=== PATIENT | female | born 1955 | race African-American/Black ===

== ENCOUNTER 2019-03-31 05:55 | Inpatient (IN) | payer BC ==
[2019-03-24 13:51] VITALS: BMI 42.0
[~2019-03-31 05:55] MED LIST: BUPIVACAINE HCL/PF 0.25% (2.5MG/ML) 10 ML VIAL IJ ONE
[2019-03-31] MEDS ORDERED: BUPIVACAINE HCL/PF 2.5 MG/ML - 30 ML VIAL IJ ONE (07:18)
--- NOTE | 2019-03-31 07:41 | HP ---
Admitting History and Physical - Admission Chief Complaint: Morbid obesity History Source: Patient Limitations to Obtaining History: No Limitations - Past Medical History Cardiovascular: Yes: HTN ...LMP Comment: 2005 Endocrine: Yes: Diabetes Mellitus - Past Surgical History Additional Past Surgical History: Bilateral total knee replacements - Smoking History Smoking history: Never smoked - Alcohol/Substance Use Hx Alcohol Use: Yes (OCCASIONAL) Home Medications - Allergies Allergies/Adverse Reactions: Allergies Allergy/AdvReac Type Severity Reaction Status Date / Time No Known Drug Allergies Allergy Verified 03/24/19 13:14 - Home Medications Home Medications: Ambulatory Orders Amlodipine Besylate 10 mg PO DAILY 03/24/19 Aspirin [Ecotrin] 325 mg PO DAILY 03/24/19 Baclofen 10 mg PO BID 03/24/19 Insulin Glargine,Hum.rec.anlog [Lantus] 28 unit SQ DAILY 03/24/19 Metformin HCl [Glucophage] 1,000 mg PO BID 03/24/19 Metoprolol Tartrate [Lopressor] 100 mg PO DAILY 03/24/19 Sitagliptin Phosphate [Januvia] 100 mg PO DAILY 03/24/19 Valsartan/Hydrochlorothiazide [Diovan Hct 160-12.5 mg Tab] 1 each PO DAILY 03/24 Famotidine [Pepcid] 20 mg PO BID #60 tablet 03/31/19 Oxycodone HCl/Acetaminophen [Percocet 5-325 mg Tablet] 1 - 2 tab PO Q6H #28 tab MDD 4 03/31/19 Family Disease History - Family Disease History Family History: Denies Review of Systems - Review of Systems Constitutional: reports: No Symptoms HENT: reports: No Symptoms Neck: reports: No Symptoms Cardiovascular: reports: No Symptoms Respiratory: reports: No Symptoms Gastrointestinal: reports: No Symptoms Neurological: reports: No Symptoms Pain Intensity: 0 Physical Examination Vital Signs: Vital Signs Temperature 98.6 F 03/31/19 07:01 Pulse Rate 79 03/31/19 07:01 Respiratory Rate 18 03/31/19 07:01 Blood Pressure 152/82 03/31/19 07:01 O2 Sat by Pulse Oximetry (%) 100 03/31/19 07:21 Constitutional: Yes: Calm Neck: Yes: WNL Cardiovascular: Yes: Regular Rate and Rhythm Respiratory: Yes: Regular Gastrointestinal: Yes: Soft, Abdomen, Obese Neurological: Yes: Alert, Oriented Problem List - Problems (1) Morbid obesity due to excess calories Code(s): E66.01 - MORBID (SEVERE) OBESITY DUE TO EXCESS CALORIES (2) BMI 40.0-44.9, adult Code(s): Z68.41 - BODY MASS INDEX (BMI) 40.0-44.9, ADULT (3) Diabetes mellitus type 2 in obese Code(s): E11.69 - TYPE 2 DIABETES MELLITUS WITH OTHER SPECIFIED COMPLICATION; E66.9 - OBESITY, UNSPECIFIED (4) Hypertension Code(s): I10 - ESSENTIAL (PRIMARY) HYPERTENSION Qualifiers: Hypertension type: unspecified Qualified Code(s): I10 - Essential (primary ) hypertension Assessment/Plan Laparoscopic possible open vertical sleeve gastrectomy possible liver biopsy, upper endoscopy
[2019-03-31] MEDS ORDERED: PROPOFOL 20 ML ONE ×2 (07:45)
[2019-03-31] MEDS ORDERED: LIDOCAINE HCL/PF 2% SDV 5ML VIAL ONE (07:45)
[2019-03-31] MEDS ORDERED: fentaNYL CITRATE 250 MCG/5 ML VIAL ONE (07:45)
[2019-03-31] MEDS ORDERED: SUCCINYLCHOLINE CHLORIDE 200 MG/10 ML VIAL ONE (07:46)
[2019-03-31] MEDS ORDERED: MIDAZOLAM HCL 2 MG/2 ML SINGLE DOSE VIAL ONE (07:46)
[2019-03-31] MEDS ORDERED: ROCURONIUM BROMIDE 50 MG/5 ML VIAL ONE (08:07)
[2019-03-31] MEDS ORDERED: ceFAZolin SODIUM 1 GM VIAL ONE (08:13)
[2019-03-31] MEDS ORDERED: ONDANSETRON 4 MG/2 ML VIAL ONE (08:17)
[2019-03-31] MEDS ORDERED: DEXAMETHASONE SOD PHOSPHATE 4 MG/1 ML VIAL ONE (08:17)
[2019-03-31] MEDS ORDERED: ePHEDrine SULFATE 50 MG/1 ML AMPULE ONE (08:29)
[2019-03-31] MEDS ORDERED: ONDANSETRON 4 MG/2 ML VIAL IVPUSH PRN (08:48)
[2019-03-31] MEDS ORDERED: HYDROmorphone HCL CARPU-JECT 1 MG/1 ML DISP.SYRIN IVPUSH PRN (08:48)
[2019-03-31] MEDS ORDERED: PROMETHAZINE HCL 25 MG/1 ML VIAL IVPUSH PRN (08:48)
[2019-03-31] MEDS ORDERED: NEOSTIGMINE METHYLSULFATE 0.5 MG/ML - 10 ML MDV ONE (09:09)
[2019-03-31] MEDS ORDERED: GLYCOPYRROLATE 0.2 MG/1 ML VIAL ONE (09:09)
[2019-03-31] MEDS ORDERED: BUPIVACAINE HCL/PF 0.25% (2.5MG/ML) 10 ML VIAL IJ ONE (09:12)
[2019-03-31] MEDS ORDERED: HYDROmorphone HCL CARPU-JECT 1 MG/1 ML DISP.SYRIN IVPB PRN (09:21)
--- NOTE | 2019-03-31 09:28 | OP ---
Operative Note - Note: Operative Date: 03/31/19 Pre-Operative Diagnosis: Morbid obesity. BMI 42.1. Diabetes mellitus 2. Hypertension Operation: Laparoscopic hiatal hernia repair. Laparoscopic vertical sleeve gastrectomy. Laparoscopic wedge liver biopsy Post-Operative Diagnosis: Same as Pre-op (as well as hiatal hernia and hepatomegaly) Surgeon: Dann Larson [employer] Laborer: Jack Haq Anesthesia: General Specimens Removed: Greater curvature of stomach. Liver biopsy Estimated Blood Loss (mls): 30 Drains & Tubes with Location: 36 fr bougie Operative Report Dictated: Yes
[2019-03-31] MEDS ORDERED: METOCLOPRAMIDE HCL INJECTION 10 MG/2 ML VIAL IVPUSH SCH (09:30)
[2019-03-31] MEDS ORDERED: FAMOTIDINE 20 MG PREMIXED IVPB IVPB ONE (09:50)
[2019-03-31] MEDS: ACETAMINOPHEN 1000 MG/100 ML VIAL (NON FORMULARY) IVPB ONE ×2 (10:00→14:41)
[2019-03-31] MEDS ORDERED: PATIENT'S OWN MEDICATION (NON-FORMULARY) (Metoprolol Tartrate [Lopressor] 100 MG) PO SCH (10:00)
[2019-03-31] MEDS ORDERED: PATIENT'S OWN MEDICATION (NON-FORMULARY) (Valsartan/Hydrochlorothiazide [Diovan Hct 160-12 PO SCH (10:00)
[2019-03-31] MEDS ORDERED: INSULIN (NOVOLOG) ASPART 100 UNITS/ML 10ML VIAL SQ ONE (10:07)
[2019-03-31] MEDS ORDERED: METOPROLOL TARTRATE 5 MG/5 ML VIAL IVPUSH PRN (10:16)
[2019-03-31 10:50] LABS: HEMATOCRIT 31.4 % (32.4-45.2); HEMOGLOBIN 10.4 GM/dl (10.7-15.3); MCH 29.4 pg (25.7-33.7); MCHC 33.3 g/dl (32.0-36.0); MEAN CELL VOLUME 88.3 fl (80-96); MEAN PLT VOLUME 7.7 fl (7.5-11.1); PLATELET COUNT 358 K/MM3 (134-434); RBC 3.56 M/mm3 (3.60-5.2); RDW 14.7 % (11.6-15.6); WHITE BLOOD COUNT 10.9 K/mm3 (4.0-10.8)
[2019-03-31] MEDS: SODIUM CHLORIDE 1,000 ML IV SCH (11:00)
[2019-03-31 11:05] LABS: ALBUMIN 3.5 g/dl (3.4-5.0); BILIRUBIN,TOTAL 0.9 mg/dl (0.2-1); CALCIUM 9.3 mg/dl (8.5-10); POTASSIUM 3.7 mmol/L (3.5-5.1); TOT PROT 7.1 g/dl (6.4-8.2)
[2019-03-31] MEDS: ONDANSETRON 4 MG/2 ML VIAL IVPUSH SCH ×2 (13:45→21:23)
[2019-03-31] MEDS: VALSARTAN 160 MG TABLET (UD) PO SCH (14:39)
[2019-03-31] MEDS: LACTATED RINGERS SOLUTION 1,000 ML IV SCH (14:40)
[2019-03-31] MEDS: HYDROCHLOROTHIAZIDE 12.5 MG CAPSULE (FP) PO SCH (14:42)
[2019-03-31] MEDS: amLODIPine BESYLATE 10 MG TABLET (FP) PO SCH (14:42)
[2019-03-31] MEDS: FAMOTIDINE 20 MG/50 ML IVPB 20 MG/50 ML MG IVPB SCH ×2 (14:43→21:24)
[2019-03-31] MEDS: ACETAMINOPHEN 1000 MG/100 ML VIAL (NON FORMULARY) IVPB SCH ×2 (16:56→21:24)
[2019-03-31] MEDS: METOCLOPRAMIDE HCL INJECTION 10 MG/2 ML VIAL IVPUSH SCH ×2 (16:57→21:33)
[2019-03-31] MEDS ORDERED: INSULIN (NOVOLOG) ASPART 100 UNITS/ML 10ML VIAL ONE (17:02)
[2019-03-31] MEDS: INSULIN SLIDING SCALE (NOVOLOG) 1 VIAL SQ SCH (17:04)
[2019-03-31] MEDS: ENOXAPARIN NA (PORCINE) 40 MG/0.4 ML DISP.SYRIN SQ SCH (21:24)
--- NOTE | 2019-03-31 22:24 | SPEC ---
DATE OF OPERATION: 03/31/2019 PLACE OF PROCEDURE: Evan Slaughter PREOPERATIVE DIAGNOSES: 1. Morbid obesity. 2. Body mass index of 42.1. 3. Hypertension. 4. Diabetes mellitus type 2. POSTOPERATIVE DIAGNOSES: 1. Morbid obesity. 2. Body mass index of 42.1. 3. Hypertension. 4. Diabetes mellitus type 2. 5. Hepatomegaly. 6. Hiatal hernia. PROCEDURES: 1. Diagnostic laparoscopy. 2. Laparoscopic vertical sleeve gastrectomy. 3. Laparoscopic wedge liver biopsy. 4. Laparoscopic hiatal hernia repair. SPECIMEN: 1. Greater curvature of the stomach. 2. Liver biopsy. ESTIMATED BLOOD LOSS: 30 mL. DRAINS: None. ANESTHESIA: GET. BOUGIE SIZE: 36 Mal[place]. REASON FOR PROCEDURE: This is a 64-year-old female who presents for weight loss options. After describing the options, she decided to proceed with a laparoscopic, possible open, vertical sleeve gastrectomy, possible liver biopsy, and upper endoscopy. RISKS AND BENEFITS: The patient was seen by the respective subspecialties and cleared for surgery. The risks and benefits of the procedure were explained. These included bleeding, infection, hernia, AL, DVT, PE, injury to surrounding structures including the liver, colon, bowel, spleen, esophagus, vessel injury, nerve injury, weight regain, gastric leak, staple line leak, sleeve leak, obstruction, vitamin deficiency, hair loss and as some of the possible complications. The patient understood and signed informed consent. DESCRIPTION OF PROCEDURE: The patient was placed supine on the operating room table. The patient underwent general endotracheal intubation. The arms were brought out at 90 degrees and secured. A footboard was placed and the legs were secured laterally with padding. The abdomen was prepped and draped in the usual sterile fashion. A timeout was performed. An incision was made in the left upper quadrant and a Veress needle inserted. Pneumoperitoneum was established. Subsequently, the Veress needle was removed and a 5-mm trocar was placed under direct visualization with the laparoscope. The laparoscopic camera was then inserted and inspection of the abdominal cavity was performed. An incision was then made in the supraumbilical area and a 15-mm trocar was placed under direct visualization. A 5-mm trocar was then placed in the right upper quadrant and a 5-mm trocar was placed below the left subcostal margin. A stab wound was made in the subxiphoid area and a Darleen clamp inserted and removed to dilate the tract. A Selvin liver retractor was inserted. The post was secured at the bedside by the nursing staff. The patient was placed in steep reverse Trendelenburg position and the Selvin liver retractor was used to secure the liver towards the anterior abdominal wall. The pylorus was identified and 6 cm proximal to it, the lesser sac was entered using the LigaSure device. All lateral attachments to the greater curvature of the stomach, including the short gastric vessels, were ligated using the LigaSure device toward the gastrosplenic and gastrophrenic ligaments. Once this was done in its entirety, it was confirmed that all tubes within the nasal or oropharyngeal cavity, including a temperature probe were removed by Anesthesia. The bougie was then inserted by Anesthesia. Transection of the stomach was then begun staying adjacent to the bougie but away from the angularis. Transection of the stomach was performed near the portion of the stomach where the lesser sac was entered. Two laparoscopic Endo-JAYJAY black linda were used at this location. Laparoscopic Endo JAYJAY purple staple loads were then used for the remainder of the transection until the greater curvature of the stomach was fully transected. This was done staying close to the bougie. Care was taken to stay away from the angle of His cephalad. The staple line was then inspected. Hemostasis was identified. A leak test was then performed. It was clamped distally to the staple line. Irrigation solution was placed in the left upper quadrant and air was insufflated by Anesthesia into the sleeve. No leaks were identified. No obstruction was identified. This was done through the entirety of the staple line. The stomach was suctioned and the bougie removed fully intact under direct visualization. At this point, the irrigation solution was suctioned and again, hemostasis was noted. A wedge liver biopsy was then performed. The left lobe of the liver was identified. A portion of the edge of the left lobe of the liver was grasped. Using electrocautery, a wedge of the left liver was excised. The specimen was removed and sent off the field. Hemostasis of the wedge liver biopsy site was attained and noted using electrocautery. The 15-mm supraumbilical trocar was then removed and the greater curvature specimen removed from the site using a sponge stick batres. A Miguel-Renato device was then used to close the fascia with a 0 Vicryl suture at the site. Again, hemostasis was noted. The Selvin liver retractor was then removed under direct visualization. Pneumoperitoneum was desufflated. Hemostasis was noted at all incision sites and Marcaine was injected at all incision sites. A 3-0 Vicryl suture was used to close the deep subcutaneous tissue at the 15-mm incision site. All incision sites were closed using 4-0 Biosyn. Sterile dressings were applied. The patient tolerated the procedure well and was transferred to the recovery room in stable condition. ADDENDUM: Please note, in addition, at the beginning of the case, a hiatal hernia was noted. The hiatus was dissected until cleared. Hemostasis was noted. Using the Endostitch, a onnule-am-qmeym closure was performed, reducing the size of the hiatus. The remainder of the vertical sleeve gastrectomy was continued after this. Mariela SYED/[id number]
[2019-04-01] MEDS: ONDANSETRON 4 MG/2 ML VIAL IVPUSH SCH ×4 (01:54→13:54)
[2019-04-01] MEDS: ACETAMINOPHEN 1000 MG/100 ML VIAL (NON FORMULARY) IVPB SCH ×2 (04:10→09:24)
[2019-04-01] MEDS: METOCLOPRAMIDE HCL INJECTION 10 MG/2 ML VIAL IVPUSH SCH ×2 (04:10→09:43)
[2019-04-01] MEDS ORDERED: INSULIN (NOVOLOG) ASPART 100 UNITS/ML 10ML VIAL ONE (07:19)
[2019-04-01] MEDS: INSULIN SLIDING SCALE (NOVOLOG) 1 VIAL SQ SCH ×2 (07:46→11:51)
[2019-04-01 08:21] LABS: HEMATOCRIT 28.4 % (32.4-45.2); HEMOGLOBIN 9.6 GM/dl (10.7-15.3); MCH 30.1 pg (25.7-33.7); MCHC 33.9 g/dl (32.0-36.0); MEAN CELL VOLUME 88.9 fl (80-96); MEAN PLT VOLUME 7.8 fl (7.5-11.1); PLATELET COUNT 322 K/MM3 (134-434); RBC 3.19 M/mm3 (3.60-5.2); RDW 14.8 % (11.6-15.6); WHITE BLOOD COUNT 11.1 K/mm3 (4.0-10.8)
[2019-04-01 08:28] LABS: ALBUMIN 3.2 g/dl (3.4-5.0); BILIRUBIN,TOTAL 0.9 mg/dl (0.2-1); CALCIUM 8.6 mg/dl (8.5-10); CREATININE 0.8 mg/dl (0.55-1.3); POTASSIUM 4.1 mmol/L (3.5-5.1); TOT PROT 6.5 g/dl (6.4-8.2)
[2019-04-01] MEDS: LACTATED RINGERS SOLUTION 1,000 ML IV SCH (09:25)
[2019-04-01] MEDS: amLODIPine BESYLATE 10 MG TABLET (FP) PO SCH (09:26)
[2019-04-01] MEDS: HYDROCHLOROTHIAZIDE 12.5 MG CAPSULE (FP) PO SCH (09:26)
[2019-04-01] MEDS: VALSARTAN 160 MG TABLET (UD) PO SCH (09:26)
[2019-04-01] MEDS: METOPROLOL TARTRATE 50 MG TABLET (FP) PO SCH ×2 (09:26→13:56)
[2019-04-01] MEDS: FAMOTIDINE 20 MG/50 ML IVPB 20 MG/50 ML MG IVPB SCH (09:43)
[2019-04-01] MEDS: SODIUM CHLORIDE 1,000 ML IV SCH (09:44)
[2019-04-01] MEDS: ENOXAPARIN NA (PORCINE) 40 MG/0.4 ML DISP.SYRIN SQ SCH (09:44)
[2019-04-01] MEDS ORDERED: oxyCODONE HCL 5 MG TABLET PO PRN (13:08)
--- NOTE | 2019-04-01 13:10 | PN ---
Progress Note (short form) - Note Progress Note: POD 1 No events reported Vital Signs Period Temp Pulse Resp BP Sys/Mcgrath Pulse Ox Last 24 Hr 97.7 F-99.5 F 91-97 - 109-150/56-76 94-98 CBC,CMP WBC 11.1 K/mm3 (4.0-10.8) H 04/01/19 07:37 RBC 3.19 M/mm3 (3.60-5.2) L 04/01/19 07:37 Hgb 9.6 GM/dl (10.7-15.3) L 04/01/19 07:37 Hct 28.4 % (32.4-45.2) L 04/01/19 07:37 MCV 88.9 fl (80-96) 04/01/19 07:37 MCH 30.1 pg (25.7-33.7) 04/01/19 07:37 MCHC 33.9 g/dl (32.0-36.0) 04/01/19 07:37 RDW 14.8 % (11.6-15.6) 04/01/19 07:37 Plt Count 322 K/MM3 (134-434) 04/01/19 07:37 MPV 7.8 fl (7.5-11.1) 04/01/19 07:37 Sodium 139 mmol/L (136-145) 04/01/19 07:37 Potassium 4.1 mmol/L (3.5-5.1) 04/01/19 07:37 Chloride 109 mmol/L (98-107) H 04/01/19 07:37 Carbon Dioxide 21 mmol/L (21-32) 04/01/19 07:37 Anion Gap 9 MMOL/L (8-16) 04/01/19 07:37 BUN 15.0 mg/dl (7-18) 04/01/19 07:37 Creatinine 0.8 mg/dl (0.55-1.3) 04/01/19 07:37 Est GFR (CKD-EPI)AfAm 90.94 04/01/19 07:37 Est GFR (CKD-EPI)NonAf 78.46 04/01/19 07:37 POC Glucometer 228 UNITS (80-120) 04/01/19 11:50 Random Glucose 247 mg/dl (74-106) H 04/01/19 07:37 Calcium 8.6 mg/dl (8.5-10) 04/01/19 07:37 Total Bilirubin 0.9 mg/dl (0.2-1) 04/01/19 07:37 AST 34 U/L (15-37) 04/01/19 07:37 ALT 29 U/L (13-61) 04/01/19 07:37 Alkaline Phosphatase 97 U/L (45-117) D 04/01/19 07:37 Total Protein 6.5 g/dl (6.4-8.2) 04/01/19 07:37 Albumin 3.2 g/dl (3.4-5.0) L 04/01/19 07:37 UGI: no leak/obstruction Clears Discharge home Problem List - Problems (1) Morbid obesity due to excess calories Code(s): E66.01 - MORBID (SEVERE) OBESITY DUE TO EXCESS CALORIES (2) BMI 40.0-44.9, adult Code(s): Z68.41 - BODY MASS INDEX (BMI) 40.0-44.9, ADULT (3) Diabetes mellitus type 2 in obese Code(s): E11.69 - TYPE 2 DIABETES MELLITUS WITH OTHER SPECIFIED COMPLICATION; E66.9 - OBESITY, UNSPECIFIED (4) Hypertension Code(s): I10 - ESSENTIAL (PRIMARY) HYPERTENSION Qualifiers: Hypertension type: unspecified Qualified Code(s): I10 - Essential (primary ) hypertension
[2019-04-01] MEDS ORDERED: SODIUM CHLORIDE 1,000 ML IV SCH (13:15)
--- NOTE | 2019-04-01 14:16 | PN ---
Progress Note (short form) - Note Progress Note: ANESTHESIA POSTOP 64 YO FEMALE, POD#1, s/p Lap gastric sleeve, GETA Patient in bed. No complaints. Pain adequately controlled. No n/v VSS, Afebrile Continue current care, encouraged ambulation and IS. No anesthetic complications.
[2019-04-01 14:23] VITALS: BP 135/63; PULSE 88; TEMP 99.6
--- NOTE | 2019-04-02 15:46 | PATH ---
Surgical Pathology Report Patient Name: CHANDNI VERDE Med. Rec. #: [id number] /Age/Gender: 1955 (Age: 64) / F Account: [id number] Location: [facility] Taken: 03/31/2019 Received: 03/31/2019 Reported: 04/02/2019 Physicians: Dann Larson M.D. Specimen(s) Received A: GREATER CURVATURE STOMACH B: LIVER BIOPSY Clinical History Morbid obesity Final Diagnosis A. GREATER CURVATURE, STOMACH, LAPAROSCOPIC GASTRIC SLEEVE EXCISION: PORTION OF STOMACH WITH NO SIGNIFICANT PATHOLOGIC FINDINGS. IMMUNOSTAIN IS NEGATIVE FOR H. PYLORI ORGANISMS. B. LIVER, WEDGE BIOPSY: LIVER PARENCHYMA WITH NO SIGNIFICANT PATHOLOGIC FINDINGS. IRON STAIN SHOWS NO APPRECIABLE INCREASE IN IRON. RETICULIN STAIN SHOWS NO SIGNIFICANT INCREASE IN FIBROSIS. Electronically Signed Nanette Liu M.D. Gross Description A. Received in formalin, labeled "greater curvature of stomach," is a 100 gram, 19.0 x 2.8 x 2.8 cm. portion of stomach with a stapled margin of resection. The serosa is regalado-callaway with minimal attached fat. The mucosa is regalado-pink with normal folds. No mucosal masses are identified. Lettuce Trimmer sections are submitted in one cassette. B. Received in formalin labeled "liver biopsy," is a 2.3 x 1.0 x 0.5 cm regalado portion of soft tissue, consistent with a wedge of liver. The specimen is bisected and entirely submitted in one cassette. /04/01/2019 saudi/04/01/2019
== END 2019-04-01 15:48 | disposition home or self-care (01) | DRG 621 ==
LOC: FM/S 05:55
PROVIDERS: ADMIT Surgery; ATTEND Surgery
PROC: 0FB24ZX Excision of Left Lobe Liver, Percutaneous Endoscopic Approach, Diagnostic (ICD-10-PCS; 2019-03-31)
PROC: 0DB64Z3 Excision of Stomach, Percutaneous Endoscopic Approach, Vertical (ICD-10-PCS; principal; 2019-03-31 08:26)
PROC: 0BQT4ZZ Repair Diaphragm, Percutaneous Endoscopic Approach (ICD-10-PCS; 2019-03-31 08:26)
DX: E66.01 Morbid (severe) obesity due to excess calories (principal); Z68.41 Body mass index [BMI] 40.0-44.9, adult; I10 Essential (primary) hypertension; E11.9 Type 2 diabetes mellitus without complications; R16.0 Hepatomegaly, not elsewhere classified; K44.9 Diaphragmatic hernia without obstruction or gangrene
CPT/HCPCS: 36415; 74241-TC-FY; 80053; 82962; 85027; 88305-TC; 94760; J0131; J7030